=== PATIENT | female | born 1975 | race Caucasian/White ===

== ENCOUNTER 2017-07-21 08:10 | Outpatient (CLI) | payer OTHER | END 2017-07-21 08:16 | disposition home or self-care (01) | LOC: TOM 08:10 | DX: C50.212 Malignant neoplasm of upper-inner quadrant of left female breast (principal) ==

== ENCOUNTER 2017-07-21 10:06 | Outpatient (CLI) | payer OTHER | END 2017-07-21 11:00 | disposition home or self-care (01) | LOC: NUCLEAR 10:06 | DX: M81.0 Age-related osteoporosis without current pathological fracture (principal) ==

== ENCOUNTER 2017-10-02 09:57 | Day surgery (SDC) | payer OTHER ==
[~2017-10-02 09:57] MED LIST: NOLVADEX10 MG PO; VIT E; ZOLADEX3.6 MG
== END 2017-10-02 17:20 | disposition home or self-care (01) ==
LOC: CIR.AMB 09:57
DX: C50.912 Malignant neoplasm of unspecified site of left female breast (principal); Z90.12 Acquired absence of left breast and nipple

== ENCOUNTER 2017-11-22 16:38 | Inpatient (IN) | payer OTHER ==
[~2017-11-22] VITALS: Ht 165.1 cm; Wt 79.4 kg
== END 2017-11-28 14:16 | disposition home or self-care (01) | DRG 584 ==
LOC: ER 16:38 → SURG 19:44 → SURH 19:44 → SURG 21:20
PROVIDERS: Plastic Surgery
PROC: BH01ZZZ Plain Radiography of Left Breast (ICD-10-PCS; 2017-11-22)
PROC: 8E0ZXY6 Isolation (ICD-10-PCS; 2017-11-22)
PROC: 0H9U3ZX Drainage of Left Breast, Percutaneous Approach, Diagnostic (ICD-10-PCS; 2017-11-23)
PROC: BH41ZZZ Ultrasonography of Left Breast (ICD-10-PCS; 2017-11-23)
PROC: 0H9U0ZX Drainage of Left Breast, Open Approach, Diagnostic (ICD-10-PCS; 2017-11-27)
PROC: 0HPU0JZ Removal of Synthetic Substitute from Left Breast, Open Approach (ICD-10-PCS; principal; 2017-11-27 17:45)
DX: N61.1 Abscess of the breast and nipple (principal); L76.34 Postprocedural seroma of skin and subcutaneous tissue following other procedure; N39.0 Urinary tract infection, site not specified; Z90.12 Acquired absence of left breast and nipple; Z88.0 Allergy status to penicillin; B95.61 Methicillin susceptible Staphylococcus aureus infection as the cause of diseases classified elsewhere; B37.2 Candidiasis of skin and nail; B95.1 Streptococcus, group B, as the cause of diseases classified elsewhere; C50.812 Malignant neoplasm of overlapping sites of left female breast

== ENCOUNTER 2018-03-26 14:51 | Outpatient (CLI) | payer OTHER | END 2018-03-26 14:54 | disposition home or self-care (01) | LOC: MAMO-SONO 14:51 | DX: C50.512 Malignant neoplasm of lower-outer quadrant of left female breast (principal); N63.21 Unspecified lump in the left breast, upper outer quadrant; Z12.31 Encounter for screening mammogram for malignant neoplasm of breast ==

== ENCOUNTER 2018-07-28 13:05 | Inpatient (IN) | payer OTHER ==
[~2018-07-28] VITALS: Ht 165.1 cm; Wt 80.7 kg
[~2018-07-28 13:05] MED LIST changes: +NORVASC2.5 M1 PO
== END 2018-08-01 12:33 | disposition home or self-care (01) | DRG 583 ==
LOC: SURH 07-30 07:00 → O/R 07-30 07:15 → SURH 07-30 07:15
PROVIDERS: ADMIT Plastic Surgery
PROC: 0HRU076 Replacement of Left Breast using Transverse Rectus Abdominis Myocutaneous Flap, Open Approach (ICD-10-PCS; principal; 2018-07-30 07:00)
DX: C50.912 Malignant neoplasm of unspecified site of left female breast (principal); Z90.12 Acquired absence of left breast and nipple

== ENCOUNTER 2018-08-16 06:39 | Inpatient (IN) | payer OTHER ==
[~2018-08-16] VITALS: Ht 165.1 cm; Wt 175.0 kg
--- NOTE | 2018-08-16 07:29 | NUR ---
PACIENTE ALERTA Y ORIENTADA EN JAIDEN ESFERAS. ES REFERIDA A VANI DE EMERGENCIAS POR DR LILLY YA QUE ESTA PRESENTANDO COMPLICACION EN AREA DE RECONSTRUCCION DE SENO FRANSISCO HACE DOS SEMANAS.
--- NOTE | 2018-08-16 08:57 | NUR ---
PTE EVALUADA POR EL DR CARRANZA QUIEN ADMITE A LA MISMA BAJO LOS SERVICIOS DE DR LILLY A OR. SE ORIENTA A LA PTE SOBRE EL TX Y PROCEDIMIENTO DE ADMISION, LO CUAL REFIERE ENTENDER. SE ADMINISTRA MEDICAMENTO SOHAIL ORDEN MEDICA Y SIGUIENDO MEDIDAS ASEPTICAS. IV PATENTE Y JAMAAL DE EDEMA O ERITEMA.
== END 2018-08-17 11:05 | disposition home or self-care (01) | DRG 858 ==
LOC: ER 06:39 → O/R 08:34 → SURH 08:34 → SEC-K 08:34 → O/R 09:04 → SURH 18:03
PROVIDERS: ADMIT Plastic Surgery
PROC: 0HBUXZZ (ICD-10-PCS; principal; 2018-08-16 12:00)
DX: T81.41XA Infection following a procedure, superficial incisional surgical site, initial encounter (principal); T85.898A Other specified complication of other internal prosthetic devices, implants and grafts, initial encounter; N64.1 Fat necrosis of breast; A49.01 Methicillin susceptible Staphylococcus aureus infection, unspecified site; Z90.12 Acquired absence of left breast and nipple; N61.0 Mastitis without abscess

== ENCOUNTER 2019-01-05 14:09 | Outpatient (CLI) | payer OTHER | END 2019-01-05 14:13 | disposition home or self-care (01) | LOC: MAMO-SONO 14:09 | DX: C50.512 Malignant neoplasm of lower-outer quadrant of left female breast (principal); C50.511 Malignant neoplasm of lower-outer quadrant of right female breast ==

== ENCOUNTER 2019-03-02 14:20 | Outpatient (CLI) | payer OTHER | END 2019-03-02 14:35 | disposition home or self-care (01) | LOC: SONOGRAMA 14:20 | DX: Z12.31 Encounter for screening mammogram for malignant neoplasm of breast (principal); L03.121 Acute lymphangitis of right axilla ==

== ENCOUNTER 2019-09-28 08:32 | Outpatient (CLI) | payer OTHER | END 2019-09-28 08:43 | disposition home or self-care (01) | LOC: SONOGRAMA 08:32 | PROVIDERS: ATTEND Obstetrics & Gynecology Gynecologic Oncology | DX: R10.2 Pelvic and perineal pain (principal) ==

== ENCOUNTER 2019-09-28 09:19 | Outpatient (CLI) | payer OTHER | END 2019-09-28 09:25 | disposition home or self-care (01) | LOC: LAB 09:19 | PROVIDERS: ATTEND Obstetrics & Gynecology Gynecologic Oncology | DX: N95.1 Menopausal and female climacteric states (principal) ==

== ENCOUNTER 2020-01-16 10:10 | Outpatient (CLI) | payer OTHER | END 2020-01-16 10:22 | disposition home or self-care (01) | LOC: MAMO-SONO 10:10 | PROVIDERS: ATTEND Surgery | DX: C50.412 Malignant neoplasm of upper-outer quadrant of left female breast (principal); C50.912 Malignant neoplasm of unspecified site of left female breast ==

== ENCOUNTER 2021-04-22 20:51 | Emergency (ER) | payer OTHER ==
[~2021-04-22] VITALS: Ht 165.1 cm; Wt 80.7 kg
== END 2021-04-23 02:27 | disposition home or self-care (01) ==
LOC: ER 20:51
DX: S52.122A Displaced fracture of head of left radius, initial encounter for closed fracture (principal); W18.39XA Other fall on same level, initial encounter; Y93.89 Activity, other specified; Y92.89 Other specified places as the place of occurrence of the external cause; Y99.8 Other external cause status

== ENCOUNTER 2021-07-29 08:13 | Outpatient (CLI) | payer OTHER | END 2021-07-29 10:54 | disposition home or self-care (01) | LOC: SONOGRAMA 08:13 | PROVIDERS: ATTEND Surgery | DX: N60.11 Diffuse cystic mastopathy of right breast (principal); N60.12 Diffuse cystic mastopathy of left breast ==

== ENCOUNTER 2022-03-07 06:10 | Day surgery (SDC) | payer OTHER ==
[~2022-03-07] VITALS: Ht 165.1 cm; Wt 81.6 kg
[~2022-03-07 06:10] MED LIST changes: +ARIMIDEX PO; +RAMIPRIL1.25 MG PO
== END 2022-03-07 12:20 | disposition home or self-care (01) ==
LOC: CIR.AMB 06:10 → ADM 15:15
PROVIDERS: ATTEND Plastic Surgery
DX: Z90.12 Acquired absence of left breast and nipple (principal); Z85.3 Personal history of malignant neoplasm of breast; Z88.0 Allergy status to penicillin; Z20.822 Contact with and (suspected) exposure to COVID-19; I10 Essential (primary) hypertension

== ENCOUNTER 2022-08-26 09:17 | Outpatient (CLI) | payer OTHER | END 2022-08-26 09:26 | disposition home or self-care (01) | LOC: RAD 09:17 | PROVIDERS: ATTEND Internal Medicine Cardiovascular Disease | DX: M54.2 Cervicalgia (principal) ==

== ENCOUNTER 2023-01-13 12:14 | Emergency (ER) | payer OTHER ==
[~2023-01-13] VITALS: Ht 165.1 cm; Wt 81.6 kg
== END 2023-01-13 19:22 | disposition home or self-care (01) ==
LOC: ER 12:14
DX: M94.0 Chondrocostal junction syndrome [Tietze] (principal); Z88.0 Allergy status to penicillin

== ENCOUNTER 2023-01-28 12:06 | Outpatient (CLI) | payer OTHER | END 2023-01-28 12:12 | disposition home or self-care (01) | LOC: RAD 12:06 | PROVIDERS: ATTEND Physical Medicine & Rehabilitation | DX: M25.562 Pain in left knee (principal) ==

== ENCOUNTER 2023-11-06 08:49 | Outpatient (CLI) | payer OTHER | END 2023-11-06 08:50 | disposition home or self-care (01) | LOC: NUCLEAR 08:49 | PROVIDERS: ATTEND Internal Medicine | DX: I50.9 Heart failure, unspecified (principal) ==

== ENCOUNTER 2023-12-11 05:45 | Day surgery (SDC) | payer OTHER ==
[2023-12-10 10:09] LABS: HEMATOCRIT 37.5 % (36.0-45.00); HEMOGLOBIN 12.3 g/dL (12.0-15.00); MEAN CELL VOLUME 85.7 fL (80.00-100.00); MEAN CORPUSCULAR HEMOGLOBIN 28.2 pg (27.00-32.0); MEAN CORPUSCULAR HGB CONC 32.9 g/dl (32.0-36.0); PLATELET COUNT 312 K/uL (150-450); RED BLOOD COUNT 4.37 M/uL (4.00-6.00); RED CELL DISTRIBUTION WIDTH 14.4 % (11.5-14.5)
[2023-12-10 10:16] LABS: URINE APPEARANCE Clear; URINE BILIRRUBIN Negative (NEGATIVE); URINE BLOOD Negative; URINE COLOR Yellow; URINE GLUCOSE Negative (NEGATIVE); URINE KETONE Negative (NEGATIVE); URINE LEUKOCYTE Negative; URINE NITRATE Negative; URINE PROTEIN Negative (NEGATIVE); URINE UROBILINOGEN 0.2 E.U./dl
[2023-12-10 10:24] LABS: URINE EPITHELIAL CELLS 1.8 uL (0.0-38.8); URINE RBC 2.1 uL (0.0-20.8)
[2023-12-10 10:26] LABS: URINE BACTERIA 0 uL (0.0-1933); URINE WBC 0.9 uL (0.0-23.2)
[2023-12-10 10:27] LABS: INR 1.01; PARTIAL THROMBOPLASTIN TIME 30.6 SECONDS (22.0-34.0)
[2023-12-10 11:03] VITALS: BP 108/69
[2023-12-10 11:53] LABS: CALCIUM 9.6 mg/dL (8.5-10.1); CREATININE SERUM 0.65 mg/dL (0.55-1.02); GFR 98.13; POTASSIUM 4.65 mEq/L (3.5-5.1)
[~2023-12-11] VITALS: Ht 165.1 cm; Wt 82.6 kg
[~2023-12-11 05:45] MED LIST changes: +TOPROL XL25 M1 PO
[2023-12-11] MEDS ORDERED: GENTAMICIN SULFATE 40 MG/ML VIAL ONE ×2 (06:50→08:22)
[2023-12-11] MEDS ORDERED: EPINEPHRINE HCL/PF 1 MG/ML AMPUL ONE (06:50)
[2023-12-11] MEDS ORDERED: POVIDONE-IODINE SCRUB 118 ML BOTT TOP ONE (06:50)
[2023-12-11] MEDS ORDERED: CEFAZOLIN SODIUM 1,000 MG VIAL ONE (06:51)
[2023-12-11] MEDS ORDERED: POVIDONE-IODINE 118 ML BOTT TOP ONE ×2 (06:51→07:19)
[2023-12-11] MEDS ORDERED: CLINDAMYCIN PHOSPHATE 150 MG/ML (900mg) ONE (06:58)
[2023-12-11] MEDS ORDERED: BUPIVACAINE HCL/MPF 0.5% 30ML VIAL ONE (07:18)
[2023-12-11] MEDS ORDERED: MORPHINE SULFATE 4 MG/ML VIAL IV ONE ×2 (09:15→09:50)
[2023-12-11] MEDS ORDERED: MORPHINE SULFATE 4 MG/ML VIAL IV PRN (09:30)
[2023-12-11] MEDS ORDERED: ONDANSETRON HCL 2 MG/ML VIAL IV PRN (09:30)
== END 2023-12-11 11:10 | disposition home or self-care (01) ==
LOC: CIR.AMB 05:45
PROVIDERS: ATTEND Plastic Surgery
DX: C50.812 Malignant neoplasm of overlapping sites of left female breast (principal); Z90.12 Acquired absence of left breast and nipple; Z88.0 Allergy status to penicillin; I10 Essential (primary) hypertension; G43.909 Migraine, unspecified, not intractable, without status migrainosus; M19.90 Unspecified osteoarthritis, unspecified site; H52.10 Myopia, unspecified eye; H52.209 Unspecified astigmatism, unspecified eye

== ENCOUNTER 2024-06-03 06:00 | Day surgery (SDC) | payer OTHER ==
[2024-06-02 11:49] VITALS: BP 116/82
[~2024-06-03] VITALS: Ht 165.1 cm; Wt 83.9 kg
[2024-06-03] MEDS ORDERED: CLINDAMYCIN PHOSPHATE 150 MG/ML (900mg) ONE (07:35)
[2024-06-03] MEDS ORDERED: POVIDONE-IODINE 118 ML BOTT TOP ONE (09:54)
[2024-06-03] MEDS ORDERED: POVIDONE-IODINE SCRUB 118 ML BOTT TOP ONE (09:54)
[2024-06-03] MEDS ORDERED: GENTAMICIN SULFATE 40 MG/ML VIAL ONE (09:54)
[2024-06-03] MEDS ORDERED: CEFAZOLIN SODIUM 1,000 MG VIAL ONE (09:54)
[2024-06-03] MEDS ORDERED: MORPHINE SULFATE 4 MG/ML VIAL IV ONE (11:20)
[2024-06-03] MEDS ORDERED: ONDANSETRON HCL 2 MG/ML VIAL IV PRN (11:45)
[2024-06-03] MEDS ORDERED: MORPHINE SULFATE 4 MG/ML VIAL IV PRN (11:45)
== END 2024-06-03 12:35 | disposition home or self-care (01) ==
LOC: CIR.AMB 06:00
PROVIDERS: ATTEND Plastic Surgery
DX: C50.812 Malignant neoplasm of overlapping sites of left female breast (principal); Z90.12 Acquired absence of left breast and nipple; Z85.3 Personal history of malignant neoplasm of breast; Z88.0 Allergy status to penicillin; I10 Essential (primary) hypertension; G43.909 Migraine, unspecified, not intractable, without status migrainosus; J32.9 Chronic sinusitis, unspecified